=== PATIENT | male | born 1985 | race Caucasian/White ===

== ENCOUNTER 2022-02-06 14:22 | Outpatient (REF) | payer OTHER, SELFPAY ==
[2022-02-06 19:10] LABS: ALT 31 U/L (16-63); AST 23 U/L (15-37); Albumin 4.1 g/dL (3.4-5.0); Alkaline Phosphatase 86 U/L (46-116); Anion Gap 7.6 mmol/L (3-11); BUN 14 mg/dL (7-18); Bilirubin, Total 0.4 mg/dL (0.2-1.0); CO2 29.4 mmol/L (21.0-32.0); CREATININE 1.1 mg/dL (0.70-1.30); Calcium 8.9 mg/dL (8.5-10.1); Calculated LDL 103 mg/dL (<100); Chloride 107 mmol/L (98-107); Cholesterol 161 mg/dL (<200); Glucose 94 mg/dL (74-106); HDL Cholesterol 43 mg/dL (40-60); Potassium 4.3 mmol/L (3.5-5.1); Sodium 144 mmol/L (136-145); Triglyceride 75 mg/dL (<150)
== END 2022-02-06 14:23 | disposition home or self-care (01) ==
LOC: NCHCN 14:22
PROVIDERS: PCP Nurse Practitioner; Visit Provider Family Medicine
DX: Z00.00 Encounter for general adult medical examination without abnormal findings (principal); R61 Generalized hyperhidrosis; E66.9 Obesity, unspecified
CPT/HCPCS: 80053; 80061

== ENCOUNTER 2024-09-24 12:53 | Outpatient (REF) | payer SELFPAY ==
[2024-09-30 11:40] LABS: Carboxy-THC Interpretation Negative.; Delta-8 CarboxyThc by LC-MS/MS Not Detected ng/mL (Cutoff: 5); Delta-9 CarboxyThc by LC-MS/MS Not Detected ng/mL (Cutoff: 5)
== END 2024-09-24 12:54 | disposition home or self-care (01) ==
LOC: LBN 12:53
PROVIDERS: PCP Nurse Practitioner; Visit Provider Obstetrics & Gynecology Gynecology
DX: Z01.89 Encounter for other specified special examinations (principal)
CPT/HCPCS: 80349